=== PATIENT | male | born 1975 | race Hispanic/Latino ===

== ENCOUNTER 2019-11-01 08:10 | Emergency (ER) | payer OTHER, SELFPAY ==
[2019-11-01] MEDS ORDERED: NA CHLORIDE 0.9% 1,000 ML ONE ×2 (08:27→09:48)
[2019-11-01] MEDS ORDERED: ONDANSETRON 4 MG/2 ML VIAL ONE ×2 (08:27→09:48)
[2019-11-01] MEDS ORDERED: MORPHINE 4 MG/ML SYR ONE ×2 (08:27→09:47)
[2019-11-01] MEDS ORDERED: KETOROLAC 30 MG/ML INJ ONE (08:27)
[2019-11-01 08:39] LABS: Absolute Lymphocytes (CBC) 3.5 K/uL (0.7-4.9); Basophils % 0.6 % (0-1.3); Hematocrit 49.8 % (39.6-49.0); Lymphocytes % 37.9 % (15.3-44.8); MPV 8.2 fL (7.6-11.3); RBC Red Blood Cell Count 5.68 M/uL (4.33-5.43)
[2019-11-01 08:54] LABS: Albumin 3.7 g/dL (3.4-5.0); Bilirubin Direct 0.1 mg/dL (0-0.2); Bilirubin Total 0.5 mg/dL (0.2-1.0); Protein, Total 7.4 g/dL (6.4-8.2)
--- NOTE | 2019-11-01 09:01 | RAD REPORT ---
EXAM DESCRIPTION: CT - Stone Protocol - 11/01/2019 8:39 am CLINICAL HISTORY: Flank pain. ABD PAIN COMPARISON: No comparisons TECHNIQUE: Axial images were obtained without oral or IV contrast. Lack of contrast limits solid org an and vascular assessment. The [id number] spans the entirety of the system partially obscuring uppermost abdomen and lung bases. Coronal reformatted images were obtained and reviewed. All CT scans are performed using dose optimization technique as appropriate and may include automated exposure control or mA/KV adjustment according to patient size. FINDINGS: The lower lung asif are clear. Imaged portions of the liver and spleen show no suspicious findings on non-contrast imaging. The panc reas and adrenal glands are normal. No pathologic lymphadenopathy in the abdomen or pelvis. Punctate 1 mm calculus is present at the right UVJ resulting in mild right hydronephrosis. No additio nal urinary tract stone or obstructive uropathy identified. No bowel obstruction, free air, free fluid or abscess. Normal appendix noted. No significant bony abnormality. IMPRESSION: Punctate 1 mm calculus right UVJ resulting in mild right hydronephrosis.
--- NOTE | 2019-11-01 09:25 | EDPHYS ---
Physician Documentation [facility] Name: Xavi Armendariz Age: 44 yrs Sex: Male : 1975 Arrival Date: 11/01/2019 Time: 08:12 Bed 7 Private MD: ED Physician Neptali Olson HPI: 10/31 08:19 This 44 yrs old Male presents to ER via Unassigned with complaints of anushka Abdominal Pain, Back Pain, Vomiting. 08:19 The patient presents with pain that is acute. The symptoms are located in the right mid anushka back and right low back. Onset: The symptoms/episode began/occurred just prior to arrival. The pain radiates. Associated signs and symptoms: Pertinent positives: abdominal pain. The problem was sustained from unknown cause. Modifying factors: The patient symptoms are alleviated by nothing, the patient symptoms are aggravated by nothing. Severity of symptoms: At their worst the symptoms were moderate, in the emergency department the symptoms are unchanged. Historical: - Allergies: 08:15 No Known Allergies; aa5 - Home Meds: 08:15 None [Active]; aa5 - PMHx: 08:15 None; aa5 - PSHx: 08:15 None; aa5 - Immunization history:: Flu vaccine is not up to date. - Social history:: Smoking status: Patient reports the use of cigarette tobacco products, denies chronic smoking, but will smoke occasionally. - Family history:: not pertinent. ROS: 08:19 Constitutional: Negative for fever, chills, and weight loss, Eyes: Negative for injury, anushka pain, redness, and discharge, ENT: Negative for injury, pain, and discharge, Neck: Negative for injury, pain, and swelling, Cardiovascular: Negative for chest pain, palpitations, and edema, Respiratory: Negative for shortness of breath, cough, wheezing, and pleuritic chest pain, Abdomen/GI: Negative for abdominal pain, nausea, vomiting, diarrhea, and constipation, : Negative for injury, bleeding, discharge, and swelling, MS/Extremity: Negative for injury and deformity, Skin: Negative for injury, rash, and discoloration, Neuro: Negative for headache, weakness, numbness, tingling, and seizure, Psych: Negative for depression, anxiety, suicide ideation, homicidal ideation, and hallucinations, Allergy/Immunology: Negative for hives, rash, and allergies, Endocrine: Negative for neck swelling, polydipsia, polyuria, polyphagia, and marked weight changes, Hematologic/Lymphatic: Negative for swollen nodes, abnormal bleeding, and unusual bruising. 08:19 Back: Positive for flank pain, on the right. Exam: 08:19 Constitutional: This is a well developed, well nourished patient who is awake, alert, anushka and in no acute distress. Head/Face: Normocephalic, atraumatic. Eyes: Pupils equal round and reactive to light, extra-ocular motions intact. Lids and lashes normal. Conjunctiva and sclera are non-icteric and not injected. Cornea within normal limits. Periorbital areas with no swelling, redness, or edema. ENT: Nares patent. No nasal discharge, no septal abnormalities noted. Tympanic membranes are normal and external auditory canals are clear. Oropharynx with no redness, swelling, or masses, exudates, or evidence of obstruction, uvula midline. Mucous membranes moist. Neck: Trachea midline, no thyromegaly or masses palpated, and no cervical lymphadenopathy. Supple, full range of motion without nuchal rigidity, or vertebral point tenderness. No Meningismus. Chest/axilla: Normal chest wall appearance and motion. Nontender with no deformity. No lesions are appreciated. Cardiovascular: Regular rate and rhythm with a normal S1 and S2. No gallops, murmurs, or rubs. Normal PMI, no JVD. No pulse deficits. Respiratory: Lungs have equal breath sounds bilaterally, clear to auscultation and percussion. No rales, rhonchi or wheezes noted. No increased work of breathing, no retractions or nasal flaring. Male : Normal genitalia with no discharge or lesions. Skin: Warm, dry with normal turgor. Normal color with no rashes, no lesions, and no evidence of cellulitis. MS/ Extremity: Pulses equal, no cyanosis. Neurovascular intact. Full, normal range of motion. Neuro: Awake and alert, GCS 15, oriented to person, place, time, and situation. Cranial nerves II-XII grossly intact. Motor strength 5/5 in all extremities. Sensory grossly intact. Cerebellar exam normal. Normal gait. Psych: Awake, alert, with orientation to person, place and time. Behavior, mood, and affect are within normal limits. 08:19 Abdomen/GI: Inspection: abdomen appears normal, Bowel sounds: normal, Palpation: mild abdominal tenderness, in the right lower quadrant. Vital Signs: 08:14 BP 132 / 98; Pulse 71; Resp 22 S; Temp 98.3(O); Pulse Ox 98% on R/A; Weight 83.91 kg aa5 (R); Height 5 ft. 11 in. (180.34 cm) (R); Pain 10/10; 09:45 BP 124 / 96; Pulse 71; Resp 18 S; Pulse Ox 96% on R/A; Pain 6/10; aa5 10:50 BP 134 / 82; Pulse 84; Resp 16 S; Pulse Ox 98% on R/A; Pain 1/10; aa5 08:14 Body Mass Index 25.80 (83.91 kg, 180.34 cm) [facility] MDM: 08:13 Patient medically screened. [facility] 08:21 Data reviewed: vital signs, nurses notes, lab test result(s), radiologic studies, CT anushka scan. 10/31 08:19 Order name: Basic Metabolic Panel; Complete Time: 09:[address] [facility] 10/31 08:19 Order name: CBC with Diff; Complete Time: 09:[address] [facility] 10/31 08:19 Order name: Creatinine for Radiology; Complete Time: 09:[address] [facility] 10/31 08:19 Order name: Hepatic Function; Complete Time: 09:[address] [facility] 10/31 08:19 Order name: Lipase; Complete Time: 09:[address] [facility] 10/31 08:19 Order name: CT Stone Protocol; Complete Time: 09:[address] [facility] 10/31 08:19 Order name: IV Saline Lock; Complete Time: :[address] [facility] 10/31 08:19 Order name: Labs collected and sent; Complete Time: 08:[address] [facility] Administered Medications: 08:21 Drug: NS 0.9% 1000 ml Route: IV; Rate: 1 bolus; Site: right antecubital; aa5 09:47 Follow up: IV Status: Completed infusion; IV Intake: 1000ml [facility] 08:21 Drug: TORadol 30 mg Route: IVP; Site: right antecubital; aa5 08:30 Follow up: Response: No adverse reaction; Pain is decreased [facility] 08:21 Drug: Zofran (Ondansetron) 4 mg Route: IVP; Site: right antecubital; aa5 08:30 Follow up: Response: No adverse reaction aa5 08:23 Drug: morphine 4 mg Route: IVP; Site: right antecubital; aa5 08:30 Follow up: Response: No adverse reaction; Pain is decreased :47 Drug: Flomax 0.4 mg Route: PO; aa5 10:00 Follow up: Response: No adverse reaction :47 Drug: morphine 4 mg Route: IVP; Site: right antecubital; aa5 10:00 Follow up: Response: No adverse reaction :47 Drug: Zofran (Ondansetron) 4 mg Route: IVP; Site: right antecubital; aa5 10:00 Follow up: Response: No adverse reaction :47 Drug: NS 0.9% 1000 ml Route: IV; Rate: 1000 ml; Site: right antecubital; 10:52 Follow up: IV Status: Completed infusion; IV Intake: 1000ml aa5 Disposition: 11/01/19 09:24 Discharged to Home. Impression: Hydronephrosis with renal and ureteral calculous obstruction - 1 mm uvj calculi. - Condition is Stable. - Discharge Instructions: Kidney Stones, Kidney Stones, [id number], Hydronephrosis, Dietary Guidelines to Help Prevent Kidney Stones. - Prescriptions for Tylenol- Codeine #3 300-30 mg Oral Tablet - take 2 tablets by ORAL route every 6 hours As needed; 26 tablet. Zofran 4 mg Oral Tablet - take 1 tablet by ORAL route every 12 hours As needed; 20 tablet. Flomax 0.4 mg Oral Capsule, Sust. Release 24 hr - take 1 capsule by ORAL route once daily 1/2 hour following the same meal each day; 30 capsule. Cipro 500 mg Oral Tablet - take 1 tablet by ORAL route every 12 hours for 7 days; 14 tablet. - Medication Reconciliation Form, Thank You Letter, Antibiotic Education, Prescription Opioid Use form. - Follow up: Private Physician; When: 2 - 3 days; Reason: Recheck today's complaints, Continuance of care, Re-evaluation by your physician. Follow up: Cristobal Mckinley; When: 2 - 3 days; Reason: Recheck today's complaints, Re-evaluation by your physician. - Problem is new. - Symptoms have improved. Signatures: Dispatcher [employer] EDMS Neptali Olson MD MD cha Calderon, Audri, RN RN aa5 Corrections: (The following items were deleted from the chart) 09:25 09:24 11/01/2019 09:24 Discharged to Home. Impression: Hydronephrosis with renal and anushka ureteral calculous obstruction. Condition is Stable. Discharge Instructions: Kidney Stones, Kidney Stones, [id number], Hydronephrosis, Dietary Guidelines to Help Prevent Kidney Stones. Prescriptions for Tylenol-Codeine #3 300-30 mg Oral Tablet - take 2 tablets by ORAL route every 6 hours As needed; 26 tablet, Zofran 4 mg Oral Tablet - take 1 tablet by ORAL route every 12 hours As needed; 20 tablet, Flomax 0.4 mg Oral Capsule, Sust. Release 24 hr - take 1 capsule by ORAL route once daily 1/2 hour following the same meal each day; 30 capsule, Cipro 500 mg Oral Tablet - take 1 tablet by ORAL route every 12 hours for 7 days; 14 tablet. and Forms are Medication Reconciliation Form, Thank You Letter, Antibiotic Education, Prescription Opioid Use. Follow up: Private Physician; When: 2 - 3 days; Reason: Recheck today's complaints, Continuance of care, Re-evaluation by your physician. Follow up: Cristobal Mckinley; When: 2 - 3 days; Reason: Recheck today's complaints, Re-evaluation by your physician. Problem is new. Symptoms have improved. [facility] 10:55 09:25 11/01/2019 09:24 Discharged to Home. Impression: Hydronephrosis with renal and aa5 ureteral calculous obstruction - 1 mm uvj calculi. Condition is Stable. Discharge Instructions: Kidney Stones, Kidney Stones, [id number], Hydronephrosis, Dietary Guidelines to Help Prevent Kidney Stones. Prescriptions for Tylenol-Codeine #3 300-30 mg Oral Tablet - take 2 tablets by ORAL route every 6 hours As needed; 26 tablet, Zofran 4 mg Oral Tablet - take 1 tablet by ORAL route every 12 hours As needed; 20 tablet, Flomax 0.4 mg Oral Capsule, Sust. Release 24 hr - take 1 capsule by ORAL route once daily 1/2 hour following the same meal each day; 30 capsule, Cipro 500 mg Oral Tablet - take 1 tablet by ORAL route every 12 hours for 7 days; 14 tablet. and Forms are Medication Reconciliation Form, Thank You Letter, Antibiotic Education, Prescription Opioid Use. Follow up: Private Physician; When: 2 - 3 days; Reason: Recheck today's complaints, Continuance of care, Re-evaluation by your physician. Follow up: Cristobal Mckinley; When: 2 - 3 days; Reason: Recheck today's complaints, Re-evaluation by your physician. Problem is new. Symptoms have improved. anushka
--- NOTE | 2019-11-01 09:25 | ER ---
Nurse's Notes [facility] Name: Xavi Armendariz Age: 44 yrs Sex: Male : 1975 Arrival Date: 11/01/2019 Time: 08:12 Bed 7 Private MD: Diagnosis: Hydronephrosis with renal and ureteral calculous obstruction-1 mm uvj calculi Presentation: 10/31 08:14 Chief complaint: Patient states: Right mid-low back pain radiating to RLQ x 40 minutes. 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 08:14 Coronavirus screen: Patient denies fever greater than 100.4F, cough, shortness of aa5 breath, or difficulty breathing. Ebola Screen: Patient negative for fever greater than or equal to 101.5 degrees Fahrenheit, and additional compatible Ebola Virus Disease symptoms. Initial Sepsis Screen: Does the patient meet any 2 criteria? RR > 20 per min. Does the patient have a suspected source of infection? No. Patient's initial sepsis screen is negative. Risk Assessment: Do you want to hurt yourself or someone else? Patient reports no desire to harm self or others. 08:14 Acuity: YANA 2 aa5 08:14 Method Of Arrival: Ambulatory aa5 Historical: - Allergies: 08:15 No Known Allergies; aa5 - Home Meds: 08:15 None [Active]; aa5 - PMHx: 08:15 None; aa5 - PSHx: 08:15 None; aa5 - Immunization history:: Flu vaccine is not up to date. - Social history:: Smoking status: Patient reports the use of cigarette tobacco products, denies chronic smoking, but will smoke occasionally. - Family history:: not pertinent. Screenin:32 Abuse screen: Denies threats or abuse. Nutritional screening: No deficits noted. aa5 Tuberculosis screening: No symptoms or risk factors identified. Fall Risk None identified. Assessment: 08:14 General: Appears distressed, uncomfortable, Behavior is cooperative. Pain: Complains of aa5 pain in right low back and right mid back Pain radiates to right lower quadrant Pain currently is 10 out of 10 on a pain scale. Quality of pain is described as sharp, shooting, Pain began 40 minutes ago Is continuous. Neuro: Level of Consciousness is awake, alert, obeys commands, Oriented to person, place, time, situation. Cardiovascular: Heart tones S1 S2 present Rhythm is regular. Respiratory: Airway is patent Respiratory effort is even, unlabored, Respiratory pattern is regular, symmetrical. GI: Abdomen is round non-distended, Bowel sounds present X 4 quads. Abd is soft and non tender X 4 quads. : No signs and/or symptoms were reported regarding the genitourinary system. EENT: No signs and/or symptoms were reported regarding the EENT system. Derm: Skin is pink, warm \T\ dry. Musculoskeletal: Range of motion: intact in all extremities. 08:30 Reassessment: Patient is alert, oriented x 3, equal unlabored respirations, skin aa5 warm/dry/pink. Patient states feeling better. Patient states symptoms have improved. General: Appears comfortable, Behavior is calm, cooperative. 08:34 Reassessment: Pt to CT via wheelchair . aa5 08:56 Reassessment: Patient is alert, oriented x 3, equal unlabored respirations, skin aa5 warm/dry/pink. Patient states feeling better. Pain: Pain currently is 1 out of 10 on a pain scale. 09:40 Reassessment: Patient is alert, oriented x 3, equal unlabored respirations, skin aa5 warm/dry/pink. Pt reports increased pain, MD notified. . Pain: Pain currently is 6 out of 10 on a pain scale. 10:00 Reassessment: Patient is alert, oriented x 3, equal unlabored respirations, skin aa5 warm/dry/pink. Patient states feeling better. Patient states symptoms have improved. 10:00 Pain: Pain currently is 2 out of 10 on a pain scale. aa5 10:52 Reassessment: Patient is alert, oriented x 3, equal unlabored respirations, skin aa5 warm/dry/pink. Vital Signs: 08:14 BP 132 / 98; Pulse 71; Resp 22 S; Temp 98.3(O); Pulse Ox 98% on R/A; Weight 83.91 kg aa5 (R); Height 5 ft. 11 in. (180.34 cm) (R); Pain 10/10; 09:45 BP 124 / 96; Pulse 71; Resp 18 S; Pulse Ox 96% on R/A; Pain 6/10; aa5 10:50 BP 134 / 82; Pulse 84; Resp 16 S; Pulse Ox 98% on R/A; Pain 1/10; aa5 08:14 Body Mass Index 25.80 (83.91 kg, 180.34 cm) aa5 ED Course: 08:12 Patient arrived in ED. mr 08:13 Neptali Olson MD is Attending Physician. anushka 08:14 Patient has correct armband on for positive identification. Bed in low position. Call aa5 light in reach. Side rails up X2. 08:14 Arm band placed on. aa5 08:16 Mary Gomez, JJ is Primary Nurse. aa5 08:20 Initial lab(s) drawn, by ED staff, sent to lab. Inserted saline lock: 20 gauge in right aa5 antecubital area, using aseptic technique. 08:32 Triage completed. aa5 08:38 CT completed. Patient tolerated procedure well. Patient moved back from CT. bq 08:39 CT Stone Protocol In Process Unspecified. EDMS 09:24 Cristobal Mckinley MD is Referral Physician. anushka 10:53 No provider procedures requiring assistance completed. IV discontinued, intact, aa5 bleeding controlled, No redness/swelling at site. Pressure dressing applied. Administered Medications: 08:21 Drug: NS 0.9% 1000 ml Route: IV; Rate: 1 bolus; Site: right antecubital; aa5 09:47 Follow up: IV Status: Completed infusion; IV Intake: 1000ml aa5 08:21 Drug: TORadol 30 mg Route: IVP; Site: right antecubital; aa5 08:30 Follow up: Response: No adverse reaction; Pain is decreased aa5 08:21 Drug: Zofran (Ondansetron) 4 mg Route: IVP; Site: right antecubital; aa5 08:30 Follow up: Response: No adverse reaction aa5 08:23 Drug: morphine 4 mg Route: IVP; Site: right antecubital; aa5 08:30 Follow up: Response: No adverse reaction; Pain is decreased aa5 09:47 Drug: Flomax 0.4 mg Route: PO; aa5 10:00 Follow up: Response: No adverse reaction aa5 09:47 Drug: morphine 4 mg Route: IVP; Site: right antecubital; aa5 10:00 Follow up: Response: No adverse reaction aa5 09:47 Drug: Zofran (Ondansetron) 4 mg Route: IVP; Site: right antecubital; aa5 10:00 Follow up: Response: No adverse reaction aa5 09:47 Drug: NS 0.9% 1000 ml Route: IV; Rate: 1000 ml; Site: right antecubital; aa5 10:52 Follow up: IV Status: Completed infusion; IV Intake: 1000ml aa5 Intake: 09:47 IV: 1000ml; Total: 1000ml. aa5 10:52 IV: 1000ml; Total: 2000ml. aa5 Outcome: 09:24 Discharge ordered by . anushka 10:53 Discharged to home ambulatory, with significant other. aa5 10:53 Condition: improved 10:53 Discharge instructions given to patient, Instructed on discharge instructions, follow up and referral plans. medication usage, Demonstrated understanding of instructions, follow-up care, medications, Prescriptions given X 4. 10:55 Patient left the ED. aa5 Signatures: Dispatcher [employer] EDMS Neptali Olson MD MD cha Rivera, Guera Garcia Audri, RN RN aa5 Corrections: (The following items were deleted from the chart) 09:50 09:50 BP 124 / 96; Pulse 71bpm; Resp 18bpm; Spontaneous; Pulse Ox 96% RA; Pain 6/10; aa5aa5 10:14 09:45 Reassessment: Patient is alert, oriented x 3, equal unlabored respirations, skin aa5 warm/dry/pink. Pt reports increased pain, MD notified. . aa5 10:14 09:45 Pain: Pain currently is 6 out of 10 on a pain scale. aa5 aa5
[2019-11-01] MEDS ORDERED: TAMSULOSIN 0.4 MG SR CAP ONE (09:47)
[2019-11-01 11:11] VITALS: TEMP 98.3
[2019-11-01 11:14] VITALS: BP 124/96; O2SAT 96
== END 2019-11-01 10:55 | disposition home or self-care (01) ==
LOC: ER 08:10
DX: N13.2 Hydronephrosis with renal and ureteral calculous obstruction (principal); Z72.0 Tobacco use
CPT/HCPCS: 36415; 74176; 76377; 80048; 80076; 83690; 85025; 96361; 96374; 96375; 99284; J2405; J7030